=== PATIENT | female | born 1935 | race Caucasian/White ===

== ENCOUNTER 2016-06-27 15:58 | Observation (INO) | payer OTHER, MEDICARE ==
[~2016-06-27] VITALS: Ht 167.6 cm; Wt 89.3 kg
[~2016-06-27 15:58] MED LIST: ACETAMINOPHEN325 M1 PO; ARICEPT10 MG PO; ARICEPT5 MG PO; ASPIRIN81 M2 PO; BISAC-EVAC10 MG PR; BROMFENAC SODI2.5 ML RIGHT EYE; COMBIGAN O20 DROP/5 BOTH EYES; DIAMOX SEQUELS500 MG PO; ENEMA BOTTLE1 EACH MC; KLOR-CON 1010 ME1 PO; MILK OF MAGN PO; NAMENDA XR28 MG PO; NIFEDICAL XL30 MG PO; PRED FORTE100 DROP/5 LEFT EYE; PRED FORTE100 DROP/5 RIGHT EYE; SYNTHROID100 MCG PO; XALATAN2.5 ML BOTH EYES; ZOLOFT50 MG PO
[2016-06-27 17:12] LABS: HEMATOCRIT 39.3 % (36.0-46.0); MCH 28.2 PG (29.0-34.0); MCHC 32.3 G/DL (30.0-36.0); MCV 87.1 FL (83-99); MEAN PLAT.VOLUME 10.4 uM^3 (9.5-12.4); PLATELET COUNT 211 K/uL (156-360); RBC DIS.WIDTH-CV 14.1 % (11.8-14.6); RBC DIS.WIDTH-SD 45.4 % (39-53); RED BLOOD COUNT 4.51 M/uL (3.80-5.20); WHITE BLOOD COUNT 10.9 K/uL (4.1-10.2)
[2016-06-27 17:20] LABS: CHLORIDE 100 mEq/L (99-109); POTASSIUM 4.8 mEq/L (3.7-5.4); SODIUM 136 mEq/L (136-147)
[2016-06-27 17:22] LABS: GLUCOSE 108 mg/dL (70-99)
[2016-06-27 17:23] LABS: ANION GAP 9 MEQ/L (2-14)
[2016-06-27 17:26] LABS: GFR ESTIMATE (CALCULATED) > 59 mL/min/
[2016-06-27 17:27] LABS: UREA NITROGEN (BUN) 10 mg/dL (9-23)
[2016-06-27 17:33] LABS: TROP-I INTERPRETATION NEGATIVE; TROPONIN-I < 0.01 ng/mL (0.0-0.30)
[2016-06-27 21:45] VITALS: BP 153/68
[2016-06-27] MEDS ORDERED: ARICEPT10 MG PO (22:18)
[2016-06-27] MEDS ORDERED: SYNTHROID125 MCG PO (22:22)
[2016-06-27] MEDS ORDERED: NAMENDA10 MG PO (22:31)
[2016-06-27] MEDS ORDERED: PRED FORTE100 DROP/5 BOTH EYES (22:33)
[2016-06-27] MEDS ORDERED: COMBIGAN O20 DROP/5 BOTH EYES (22:33)
[2016-06-27] MEDS ORDERED: TRAZODONE HCL50 MG PO (22:35)
[2016-06-27] MEDS ORDERED: XALATAN2.5 ML BOTH EYES (22:36)
[2016-06-27] MEDS ORDERED: LISINOPRIL5 MG PO (22:37)
[2016-06-27] MEDS ORDERED: PROCARDIA XL30 MG PO (22:38)
[2016-06-27] MEDS ORDERED: DULCOLAX10 MG PR (22:40)
[2016-06-27] MEDS ORDERED: FLEET ENEMA-AD118 ML PR (22:41)
[2016-06-27] MEDS ORDERED: ROBITUSSIN COU118 M4 PO (22:41)
[2016-06-28] VITALS: BP 160/71
[2016-06-28 04:00] VITALS: BP 154/68
[2016-06-28 06:43] LABS: EOSINOPHIL (%) 3.2 % (0-5); EOSINOPHIL COUNT 0.3 K/uL (0-0.3); HEMATOCRIT 36.1 % (36.0-46.0); IMMATURE GRANULOCYTE (%) 0.4 % (0.0-0.7); INSTRUMENT ABS NEUTROPHIL CT 6.5 K/uL; LYMPHOCYTE COUNT 1.5 K/uL (1.0-2.8); MCH 28.1 PG (29.0-34.0); MCHC 32.4 G/DL (30.0-36.0); MCV 86.6 FL (83-99); MONOCYTE (%) 12.4 % (3-12); MONOCYTE COUNT 1.2 K/uL (0-0.8); NEUTROPHIL (%) 67.9 % (45-76); NEUTROPHIL COUNT 6.5 K/uL (1.8-6.4); PLATELET COUNT 218 K/uL (156-360); RBC DIS.WIDTH-CV 14.1 % (11.8-14.6); RBC DIS.WIDTH-SD 45.1 % (39-53); RED BLOOD COUNT 4.17 M/uL (3.80-5.20); WHITE BLOOD COUNT 9.5 K/uL (4.1-10.2)
[2016-06-28 07:21] LABS: ANION GAP 7 MEQ/L (2-14); CHLORIDE 101 MEQ/L (99-109); GFR ESTIMATE (CALCULATED) > 59 mL/min/; GLUCOSE 89 mg/dL (70-99); SAMPLE HEMOLYSIS CHECK 0; SAMPLE ICTERIC CHECK 0; SAMPLE LIPEMIA CHECK 0; SODIUM 135 MEQ/L (136-147); UREA NITROGEN (BUN) 9 mg/dL (9-23)
[2016-06-28 07:22] LABS: POTASSIUM 3.5 MEQ/L (3.7-5.4)
[2016-06-28] MEDS ORDERED: ROCEPHIN1 GM/50 ML IV (12:18)
== END 2016-06-28 16:30 ==
LOC: EME 15:58 → 5SOUTH 20:22 → EDOF 20:22 → 5SOUTH 21:30
PROVIDERS: Emergency Medicine; Hospitalist
DX: J95.89 Other postprocedural complications and disorders of respiratory system, not elsewhere classified (principal); J69.0 Pneumonitis due to inhalation of food and vomit; R09.02 Hypoxemia; G30.9 Alzheimer's disease, unspecified; F02.80 Dementia in other diseases classified elsewhere, unspecified severity, without behavioral disturbance, psychotic disturbance, mood disturbance, and anxiety; Y83.8 Other surgical procedures as the cause of abnormal reaction of the patient, or of later complication, without mention of misadventure at the time of the procedure
CPT/HCPCS: 71020; 76937; 80048; 80048 91; 84484; 85025; 85027; 87040; 93005; 99202; 99281; 99285; C1894; G0378; J0295; J1644; J2543; J7050